=== PATIENT | female | born 1990 | race Caucasian/White ===

== ENCOUNTER → 2016-12-10 | Outpatient (REF) | payer OTHER | LOC: M LAB REF 13:03 | PROVIDERS: ATTEND Advanced Practice Midwife | DX: Z34.82 Encounter for supervision of other normal pregnancy, second trimester (principal) ==

== ENCOUNTER → 2017-01-23 | Outpatient (CLI) | payer BC, OTHER ==
--- NOTE | 2017-01-23 11:54 | REP ---
Clinical: Anatomical evaluation. Comparison: 12/31/2016 . Findings: Examination demonstrates a single live intrauterine in breech presentation. motion is identified by technologist. Placenta is noted anteriorly and grade one without evidence for placenta previa or abruption. Amniotic fluid volume is normal. Cervix measures 4.0 cm in length and appears closed. No evidence for nuchal cord. Gestational age by LMP 22 weeks 3 days with ABENA 05/26/2017 . Gestational age by current measurements 21 weeks 5 days with ABENA 05/31/2017 . FHR equals 162 beats per minute. Estimated weight 413 grams ( 13th percentile). Anatomical assessment demonstrates normal structures including cranium, choroid plexus, cavum, cerebellum/posterior fossa, facial features, lungs, four-chamber heart/ventricular outflow tracts, diaphragm, stomach, cord insertion/three-vessel cord, kidneys/bladder, spine, and extremities. Impression: Single live intrauterine in breech presentation demonstrating appropriate interval growth. Anatomical assessment is complete and normal. No gross abnormalities are identified. Signed by Isaak Acuna MD 01/23/2017 11:46 A
== END ==
LOC: M RAD 10:21
PROVIDERS: ATTEND Advanced Practice Midwife
DX: Z36.2 Encounter for other antenatal screening follow-up (principal)

== ENCOUNTER → 2017-03-02 | Outpatient (CLI) | payer BC, OTHER ==
[2017-03-02 14:18] LABS: HEMATOCRIT 36.9 % (36.0-47.0); HEMOGLOBIN 12.5 g/dl (12.0-16.0); MEAN CORPUSCULAR HEMOGLOBIN 30.6 pg (27.0-33.0); MEAN CORPUSCULAR HGB CONC 33.9 g/dl (32.0-36.5); MEAN CORPUSCULAR VOLUME 90.2 fl (80.0-96.0); PLATELET COUNT, AUTOMATED 215 10^3/uL (150-450); RED BLOOD COUNT 4.09 10^6/uL (4.00-5.40); WHITE BLOOD COUNT 8.7 10^3/uL (4.0-10.0)
[2017-03-02 14:37] LABS: GLUCOSE CHALLENGE TEST 1 HOUR 117 MG/DL (LESS THAN 140)
== END ==
LOC: M SMT 11:05
DX: Z34.82 Encounter for supervision of other normal pregnancy, second trimester (principal)
CPT/HCPCS: 82950

== ENCOUNTER 2017-05-07 03:21 | Inpatient (IN) | payer BC, OTHER ==
[2017-05-07] MEDS: PENICILLIN G POTASSIUM IV 5 MU in D5W MINI-BAG PLUS 100 ML IV (05:38)
[2017-05-07 06:49] LABS: HEMATOCRIT 39.7 % (36.0-47.0); HEMOGLOBIN 13.7 g/dl (12.0-16.0); MEAN CORPUSCULAR HEMOGLOBIN 30.1 pg (27.0-33.0); MEAN CORPUSCULAR HGB CONC 34.5 g/dl (32.0-36.5); MEAN CORPUSCULAR VOLUME 87.3 fl (80.0-96.0); PLATELET COUNT, AUTOMATED 248 10^3/uL (150-450); RED BLOOD COUNT 4.55 10^6/uL (4.00-5.40); RED CELL DISTRIBUTION WIDTH 13.3 % (11.5-14.5); WHITE BLOOD COUNT 13.6 10^3/uL (4.0-10.0)
[2017-05-07] MEDS: PENICILLIN G POTASSIUM IV 2.5 MU in APPROPRIATE DILUENT 1 EA IV ×2 (11:13→14:54)
[2017-05-07] MEDS: LR 1,000 ML IV ×2 (12:35→14:32)
[2017-05-07] MEDS: OXYTOCIN DRIP 30 UNITS in APPROPRIATE DILUENT 1 EA IV (12:36)
[2017-05-07] MEDS ORDERED: FENTANYL 2MCG/ML ROPIVACAINE 0.2% IN 0.9% NACL 200ML IVBAG As Ordered (13:18)
[2017-05-07] MEDS ORDERED: diphenhydrAMINE INJ 50MG/ML VIAL (J1200) IV (17:15)
[2017-05-07] MEDS ORDERED: EPIDURAL/PCA KEYS XX (17:15)
[2017-05-07] MEDS ORDERED: ONDANSETRON 4MG/2ML VIAL (J2405) IV ×2 (17:15→19:00)
[2017-05-07] MEDS ORDERED: NALOXONE INJ 0.4 MG/1 ML VIAL (J2310) IV (17:15)
[2017-05-07] MEDS ORDERED: FENTANYL/ROPIVACAINE/NACL BAG 200 ML EPIDURAL (17:15)
[2017-05-07] MEDS ORDERED: ePHEDrine SULFATE 25 MG/5 ML(5MG/ML) SYRINGE IV (17:15)
[2017-05-07] MEDS ORDERED: LACTATED RINGER'S 1000 ML IV (17:15)
[2017-05-07] MEDS ORDERED: REFRIGERATOR IV KEYS XX (17:15)
[2017-05-07] MEDS ORDERED: EPIDURAL COMMENT XX (17:15)
[2017-05-07] MEDS ORDERED: OXYTOCIN DRIP 30 UNITS in APPROPRIATE DILUENT 1 EA IV (18:57)
[2017-05-07] MEDS ORDERED: LR 1,000 ML IV (18:57)
[2017-05-07] MEDS ORDERED: RHOGAM 300 MCG (1500 IU) INJ (J2790) IM (19:00)
[2017-05-07] MEDS ORDERED: ACETAMINOPHEN 500 MG TAB PO (19:00)
[2017-05-07] MEDS ORDERED: PROMETHAZINE 25 MG TAB PO (19:00)
[2017-05-07] MEDS ORDERED: DIBUCAINE 1% OINTMENT 30GM TOP (19:00)
[2017-05-07] MEDS ORDERED: MEASLES,MUMPS,RUBELLA VACCINE INJ (MMR-II) (90707) SC (19:00)
[2017-05-07] MEDS ORDERED: DOCUSATE SODIUM 100 MG CAP PO (19:00)
[2017-05-08] MEDS ORDERED: HEPATITIS B VAC *BIRTH DOSE ONLY*(ENGERIX) 10 MCG/0.5 ML SYRINGE As Ordered (00:40)
[2017-05-08] MEDS ORDERED: PHYTONADIONE 1 MG/0.5 ML SYRINGE (J3430) As Ordered (00:40)
[2017-05-08] MEDS ORDERED: ERYTHROMYCIN OPHTH OINT As Ordered (00:41)
[2017-05-08] MEDS: PRENATAL VITAMINS CHEWABLE TABLET PO (09:08)
[2017-05-08] MEDS: IBUPROFEN 800 MG TAB PO (09:13)
[2017-05-09] MEDS: PRENATAL VITAMINS CHEWABLE TABLET PO (08:54)
[2017-05-09] MEDS: IBUPROFEN 800 MG TAB PO (08:55)
== END 2017-05-09 14:00 | disposition home or self-care (01) | DRG 560 ==
LOC: M LDO 03:21 → M LDI 04:38 → M OBS 21:30
PROVIDERS: Specialist
PROC: 10E0XZZ Delivery of Products of Conception, External Approach (ICD-10-PCS; principal; 2017-05-07)
DX: O99.824 Streptococcus B carrier state complicating childbirth (principal); Z37.0 Single live birth; Z3A.37 37 weeks gestation of pregnancy

== ENCOUNTER → 2017-10-24 | Outpatient (CLI) | payer BC, OTHER | LOC: M WUC 16:57 | DX: M79.671 Pain in right foot (principal) ==

== ENCOUNTER → 2018-02-19 | Outpatient (CLI) | payer BC, OTHER ==
[~2018-02-19] MED LIST: MOTR200T44 PO; PREN29CH2 PO; TYLE500T78 PO
[2018-02-19 18:09] LABS: BASO % 0.2 % (0.0-1.0); EOS # 0.1 10^3/uL (0.0-0.50); EOS % 1.6 % (0.0-3.0); HEMATOCRIT 40.3 % (36.0-47.0); LYMPH # 2.4 10^3/uL (1.5-6.5); LYMPH % 28.3 % (24.0-44.0); MEAN CORPUSCULAR HGB CONC 34.7 g/dl (32.0-36.5); MEAN CORPUSCULAR VOLUME 89.4 fl (80.0-96.0); MONO # 0.3 10^3/uL (0.0-0.8); MONO % 3.7 % (0.0-5.0); NEUTROPHILS # 5.7 10^3/uL (1.8-7.7); NEUTROPHILS % 65.9 % (36.0-66.0); PLATELET COUNT, AUTOMATED 204 10^3/uL (150-450); RED BLOOD COUNT 4.51 10^6/uL (4.00-5.40); WHITE BLOOD COUNT 8.6 10^3/uL (4.0-10.0)
[2018-02-19 21:08] LABS: CHLAMYDIA DNA AMPLIFICATION NEGATIVE (NEGATIVE); GC DNA AMPLIFICATION NEGATIVE (NEGATIVE)
[2018-02-22 13:54] LABS: HEPATITIS C VIRUS ABY INDEX 0.1 INDEX (<0.8); HIV 1&2 SCREEN CENTAUR NEGATIVE (NEGATIVE); RUBELLA IgG QUALITATIVE IMMUNE (IMMUNE)
== END ==
LOC: M LAB 16:40
PROVIDERS: ATTEND Advanced Practice Midwife
DX: Z34.81 Encounter for supervision of other normal pregnancy, first trimester (principal); Z36.89 Encounter for other specified antenatal screening

== ENCOUNTER → 2018-03-16 | Outpatient (CLI) | payer BC, OTHER ==
--- NOTE | 2018-03-17 07:56 | REP ---
Clinical: Anatomical evaluation. Comparison: 02/09/2018 . Findings: Examination demonstrates a single live intrauterine in breech presentation. motion is identified by technologist. Placenta is noted anterior/left lateral and grade 1 with evidence for vasa previa. No placenta previa or abruption. Amniotic fluid volume is normal. Cervix measures 5.2 cm in length and appears closed. No evidence for nuchal cord. Gestational age by LMP 18 weeks 3 days with ABENA 2018 . Gestational age by current measurements 18 weeks 2 days with ABENA 08/15/2018 . FHR equals 130 beats per minute. BPD 4.0 cm 18 weeks 1 day HC 15.1 cm 18 weeks 1 day AC 12.8 cm 18 weeks 3 days FL 2.6 cm 17 weeks 6 days HL 2.6 cm 18 weeks 2 days HC/AC ratio 1.18 Estimated weight 226 grams ( 33rd percentile). Anatomical assessment demonstrates normal structures including cranium, choroid plexus, cavum, cerebellum/posterior fossa, facial features, lungs, four-chamber heart/ventricular outflow tracts, diaphragm, stomach, cord insertion/three-vessel cord, kidneys/bladder, spine, and extremities. Impression: 1. Single live intrauterine in breech presentation. Appropriate interval growth noted. 2. Vasa previa noted. 3. Limited evaluation of the facial profile. Otherwise normal anatomical assessment. Electronically Signed by Isaak Acuna MD 03/17/2018 07:47 A
== END ==
LOC: M RAD 15:43
PROVIDERS: ATTEND Advanced Practice Midwife
DX: O32.1XX0 Maternal care for breech presentation, not applicable or unspecified (principal); Z36.89 Encounter for other specified antenatal screening; Z3A.18 18 weeks gestation of pregnancy

== ENCOUNTER → 2018-05-20 | Outpatient (CLI) | payer BC, OTHER ==
[2018-05-20 13:46] LABS: HEMATOCRIT 37.8 % (36.0-47.0); HEMOGLOBIN 12.8 g/dl (12.0-15.5); MEAN CORPUSCULAR HEMOGLOBIN 30.2 pg (27.0-33.0); MEAN CORPUSCULAR HGB CONC 33.9 g/dl (32.0-36.5); MEAN CORPUSCULAR VOLUME 89.2 fl (80.0-96.0); PLATELET COUNT, AUTOMATED 203 10^3/uL (150-450); RED BLOOD COUNT 4.24 10^6/uL (4.00-5.40); WHITE BLOOD COUNT 8.5 10^3/uL (4.0-10.0)
== END ==
LOC: M SMT 09:05
PROVIDERS: ATTEND Advanced Practice Midwife
DX: O43.892 Other placental disorders, second trimester (principal); Z3A.00 Weeks of gestation of pregnancy not specified

== ENCOUNTER → 2018-05-27 | Outpatient (CLI) | payer BC, OTHER | LOC: M LAB 08:38 | PROVIDERS: ATTEND Obstetrics & Gynecology | DX: Z34.82 Encounter for supervision of other normal pregnancy, second trimester (principal); Z3A.00 Weeks of gestation of pregnancy not specified ==

== ENCOUNTER → 2018-07-29 | Outpatient (CLI) | payer BC, OTHER ==
[~2018-07-29] MED LIST changes: +ACET-683 PO; +IBUP80TA PO
[2018-07-29 19:33] LABS: HEMATOCRIT 40.2 % (36.0-47.0); HEMOGLOBIN 13.8 g/dl (12.0-15.5); MEAN CORPUSCULAR HEMOGLOBIN 30.3 pg (27.0-33.0); MEAN CORPUSCULAR HGB CONC 34.3 g/dl (32.0-36.5); MEAN CORPUSCULAR VOLUME 88.2 fl (80.0-96.0); PLATELET COUNT, AUTOMATED 210 10^3/uL (150-450); RED BLOOD COUNT 4.56 10^6/uL (4.00-5.40); WHITE BLOOD COUNT 9.3 10^3/uL (4.0-10.0)
[2018-07-29 19:47] LABS: CREATININE,RANDOM URINE 62.8 MG/DL; TOTAL PROTEIN,RANDOM URINE 8.8 MG/DL (0.0-12.0)
[2018-07-29 19:50] LABS: ALT/SGPT 50 U/L (12-78); BILIRUBIN,TOTAL 0.3 MG/DL (0.2-1.0); CREATININE FOR GFR 0.67 MG/DL (0.55-1.30); GLOMERULAR FILTRATION RATE > 60.0 (>60); LDH LACTATE DEHYDROGENASE 166 U/L (84-246); URIC ACID 4.6 MG/DL (2.6-6.0)
== END ==
LOC: M LAB 16:57
PROVIDERS: ATTEND Advanced Practice Midwife
DX: O13.3 Gestational [pregnancy-induced] hypertension without significant proteinuria, third trimester (principal); Z3A.00 Weeks of gestation of pregnancy not specified

== ENCOUNTER 2018-07-31 06:22 | Inpatient (IN) | payer BC, OTHER ==
[2018-07-31] VITALS (18 sets, daily range): BP systolic 116–131; BP diastolic 60–84
[~2018-07-31] VITALS: Ht 172.7 cm; Wt 104.4 kg
[~2018-07-31 06:22] MED LIST changes: -ACET-683 PO; -IBUP80TA PO
[2018-07-31 08:06] LABS: HEMATOCRIT 38.8 % (36.0-47.0); HEMOGLOBIN 13.4 g/dl (12.0-15.5); MEAN CORPUSCULAR HEMOGLOBIN 30.9 pg (27.0-33.0); MEAN CORPUSCULAR HGB CONC 34.5 g/dl (32.0-36.5); MEAN CORPUSCULAR VOLUME 89.6 fl (80.0-96.0); PLATELET COUNT, AUTOMATED 175 10^3/uL (150-450); RED BLOOD COUNT 4.33 10^6/uL (4.00-5.40); WHITE BLOOD COUNT 7.7 10^3/uL (4.0-10.0)
[2018-07-31] MEDS: miSOPROStol 50 MCG 1/2 TAB (S0191) PO SCH ×2 (08:15→12:48)
[2018-07-31 08:31] LABS: TOTAL PROTEIN,RANDOM URINE 39.4 MG/DL (0.0-12.0)
[2018-07-31 08:32] LABS: ALT/SGPT 42 U/L (12-78); BILIRUBIN,TOTAL 0.2 MG/DL (0.2-1.0); CREATININE FOR GFR 0.69 MG/DL (0.55-1.30); GLOMERULAR FILTRATION RATE > 60.0 (>60); LDH LACTATE DEHYDROGENASE 148 U/L (84-246); URIC ACID 4.6 MG/DL (2.6-6.0)
--- NOTE | 2018-07-31 08:35 | HPE ---
DATE OF ADMISSION: 07/31/2018 Juanita is a 27-year-old, 2, para 1-0-0-1 at 39 weeks' gestation, estimated date of confinement (EDC) of 08/14/2018 based on second-trimester ultrasound. She presents to labor and delivery today for induction of labor due to recent diagnosis of gestational hypertension. She denies any regular contractions, vaginal bleeding, and leakage of fluid. The fetus has been active. Her care was initiated at [facility] in the second trimester. Her course complicated by gestational hypertension, question of vasa previa on anatomy scan was seen at [facility] for formal ultrasound with the report of no vasa previa. OBSTETRIC HISTORY: April 2017, 37-2/7 weeks, 6 pound 5 ounce female, spontaneous vaginal delivery. OBSTETRIC LABORATORIES: O+, antibody screen negative, rubella immune, [facility] ([facility]) nonreactive. Urine culture no growth. Hepatitis B surface antigen negative, HIV negative, hepatitis C antibody nonreactive, gonorrhea and chlamydia negative. She declined genetic screening laboratories. Gestational diabetic screening abnormal at 140. 3-hour glucose tolerance test normal. Fasting 80. 1-hour 155. 2-hour 129. 3-hour 93. Group B streptococcus (GBS) is negative. PAST MEDICAL HISTORY: Childhood varicella. SURGERIES: None. FAMILY HISTORY: Noncontributory. SOCIAL HISTORY: The patient is single. However, her partner is at bedside and supportive. She is a nonsmoker. Denies alcohol and drug use. No history of any sexually-transmitted infections and denies history of abuse: physical, sexual, and emotional. ALLERGIES: No known drug allergies. CURRENT MEDICATIONS: - vitamin OBJECTIVE: Temperature 98.2, pulse 86, respirations 18, blood pressure (BP) is 126/60. Currently, the heart rate is 160 with moderate variability and positive accelerations, no decelerations. There is no pattern of contractions. Her abdomen is gravid, cephalic presentation. Estimated weight 7 pounds. Sterile vaginal examination: 1 cm dilated, 75% effaced, -2 station. ASSESSMENT: Intrauterine at 39 weeks. heart rate category one. Gestational hypertension. PLAN: Admit the patient to labor and delivery. Out of bed ad rey. Routine laboratories with the addition of preeclamptic profile and spot urine. A saline lock. Start misoprostol 50 mcg by mouth every 4 hours for cervical ripening. The patient does desire an epidural when she is in active labor. I did review risks, benefits, and alternatives. The patient and her partner have had all their questions answered and desire to proceed with induction. She has been verbally consented for emergency surgery and blood products if necessary. I do anticipate cervical ripening, labor, and a spontaneous vaginal delivery. MTDD
[2018-07-31] MEDS ORDERED: OXYTOCIN DRIP 30 UNITS in APPROPRIATE DILUENT 1 EA IV SCH (16:45)
[2018-07-31] MEDS: LR 1,000 ML IV SCH ×2 (17:40→22:25)
[2018-08-01] VITALS (48 sets, daily range): BP systolic 96–133; BP diastolic 50–80
[2018-08-01] MEDS ORDERED: ACETAMINOPHEN 500 MG TAB PO PRN ×2 (00:15→14:45)
--- NOTE | 2018-08-01 00:38 | NUR ---
L&D Note: S: comfortable O: vss, AF cat 1 tracing gen: well appearing cx: 1/75/-2, cooks cath placed 60/30 A/P: 27yo IOL GHTN -cont pitocin - good candidate for epidural -anticipate Sofia Agee MD
[2018-08-01] MEDS: LR 1,000 ML IV SCH ×2 (06:04→08:56)
--- NOTE | 2018-08-01 07:44 | NUR ---
L&D Note: S: comfortable O: vss, AF cat 1 tracing gen: well appearing cx: 4/75/-2, cooks out. AROM clear A/P: 27yo IOL GHTN -cont pitocin - good candidate for epidural -re check in within 4 hrs -anticipate Sofia Agee MD
[2018-08-01] MEDS ORDERED: FENTANYL 2MCG/ML ROPIVACAINE 0.2% IN 0.9% NACL 100ML IVBAG As Ordered ONE (08:35)
[2018-08-01 08:49] LABS: HEMATOCRIT 38.9 % (36.0-47.0); HEMOGLOBIN 13.4 g/dl (12.0-15.5); MEAN CORPUSCULAR HEMOGLOBIN 30.9 pg (27.0-33.0); MEAN CORPUSCULAR HGB CONC 34.4 g/dl (32.0-36.5); MEAN CORPUSCULAR VOLUME 89.6 fl (80.0-96.0); PLATELET COUNT, AUTOMATED 175 10^3/uL (150-450); RED BLOOD COUNT 4.34 10^6/uL (4.00-5.40); WHITE BLOOD COUNT 9.6 10^3/uL (4.0-10.0)
[2018-08-01] MEDS ORDERED: REFRIGERATOR IV KEYS XX PRN (10:00)
[2018-08-01] MEDS ORDERED: FENTANYL/ROPIVACAINE/NACL BAG 100 ML EPIDURAL SCH (10:00)
[2018-08-01] MEDS ORDERED: diphenhydrAMINE INJ 50MG/ML VIAL (J1200) IV PRN (10:00)
[2018-08-01] MEDS ORDERED: NALOXONE INJ 0.4 MG/1 ML VIAL (J2310) IV PRN (10:00)
[2018-08-01] MEDS ORDERED: EPIDURAL/PCA KEYS XX PRN (10:00)
[2018-08-01] MEDS ORDERED: ONDANSETRON 4MG/2ML VIAL (J2405) IV PRN (10:00)
[2018-08-01] MEDS ORDERED: EPIDURAL COMMENT XX SCH (10:00)
[2018-08-01] MEDS ORDERED: LACTATED RINGER'S 1000 ML IV PRN (10:00)
[2018-08-01] MEDS: ePHEDrine SULFATE 25 MG/5 ML(5MG/ML) SYRINGE IV PRN ×3 (10:13→12:51)
[2018-08-01] MEDS ORDERED: OXYTOCIN DRIP 30 UNITS in APPROPRIATE DILUENT 1 EA IV SCH (14:38)
[2018-08-01] MEDS ORDERED: IBUPROFEN 800 MG TAB PO PRN (14:45)
[2018-08-01] MEDS ORDERED: MEASLES,MUMPS,RUBELLA VACCINE INJ (MMR-II) (90707) SC SCH (14:45)
[2018-08-01] MEDS ORDERED: IBUPROFEN 600 MG TAB PO PRN (14:45)
[2018-08-01] MEDS ORDERED: DOCUSATE SODIUM 100 MG CAP PO PRN (14:45)
[2018-08-01] MEDS ORDERED: RHOGAM 300 MCG (1500 IU) INJ (J2790) IM SCH (14:45)
[2018-08-01] MEDS ORDERED: ACETAMINOPHEN TAB 650MG DOSE (2X325MG) PO PRN (14:45)
[2018-08-01] MEDS ORDERED: MOM 30ML SUSPENSION UDC PO PRN (14:45)
[2018-08-01] MEDS ORDERED: DIBUCAINE 1% OINTMENT 30GM TOP PRN (14:45)
[2018-08-01] MEDS ORDERED: METHYLERGONOVINE MALEATE 0.2 MG TAB PO PRN (14:45)
[2018-08-01] MEDS ORDERED: ANUSOL HC CREAM 30GM TOP PRN (14:45)
[2018-08-01] MEDS ORDERED: OXYTOCIN 30 UNITS IN 0.9% NaCl 500ML IV BAG (J2590) As Ordered ONE (14:50)
[2018-08-01] MEDS: PRENATAL VITAMINS CHEWABLE TABLET PO SCH (14:59)
[2018-08-02 05:51] VITALS: BP 119/60
--- NOTE | 2018-08-02 06:28 | NUR ---
PPD# 1 S: Doing well w/o complaints. +voids, +ambulation and pain well controlled O: vss, AF gen: well appearing abd: soft, nttp ff@U ext: neg calf tenderness A/P: PPD # 1 s/p NSD, recovering in stable condition -continue routine care -d/c plans for tomorrow or later today Sofia Agee MD
--- NOTE | 2018-08-02 07:32 | DN ---
DATE OF DELIVERY: 08/01/2018 TIME OF : 1413 GENDER: Female. APGARS: 8 and 9. WEIGHT: 6 pounds 9 ounces or 2970 grams. ANESTHESIA: Epidural. LACERATIONS: None. ESTIMATED BLOOD LOSS: 300 mL. COUNTS: 5 laparotomy sponges accounted for prior to delivery. DELIVERY NOTE: On 08/01/2018, at 1413, Ms. Yanez, a 27-year-old, 2, now para 2, had spontaneous vaginal delivery of a live born female infant, Apgars 8 and 9, weight was 6 pounds 9 ounces or 2970 grams. Head was delivered occiput anterior (OA) over an intact perineum followed by delivery of shoulders and corpus. The infant was handed to mom with a good cry. Cord was clamped times two and was cut by the father of the baby under my direction. Placenta was then drained and delivered grossly intact. A premixed bag of 500 mL of normal saline with 30 units of Pitocin was then bolused along with uterine massage until the uterus was firm. On inspection, cervix, vagina and perineum was grossly intact and hemostatic. Mom and baby recovering in stable condition. The couple has decided to name their daughter, Tri.
[2018-08-02] MEDS: PRENATAL VITAMINS CHEWABLE TABLET PO SCH (08:25)
[2018-08-02] MEDS ORDERED: IBUP80TA PO (16:05)
[2018-08-02] MEDS ORDERED: ACET-683 PO (16:05)
== END 2018-08-02 18:42 | disposition home or self-care (01) | DRG 560 ==
LOC: M LDI 06:22 → M OBS 08-01 17:28
PROVIDERS: ADMIT Advanced Practice Midwife; ATTEND Advanced Practice Midwife
PROC: 3E0DXGC Introduction of Other Therapeutic Substance into Mouth and Pharynx, External Approach (ICD-10-PCS; 2018-07-31)
PROC: 10E0XZZ Delivery of Products of Conception, External Approach (ICD-10-PCS; principal; 2018-08-01)
DX: O13.4 Gestational [pregnancy-induced] hypertension without significant proteinuria, complicating childbirth (principal); Z37.0 Single live birth; Z3A.39 39 weeks gestation of pregnancy

== ENCOUNTER → 2018-12-21 | Outpatient (REF) | payer OTHER ==
[~2018-12-21] MED LIST changes: +ACET-683 PO; +IBUP80TA PO
== END ==
LOC: M LAB REF 18:44
PROVIDERS: ATTEND Obstetrics & Gynecology
DX: Z12.4 Encounter for screening for malignant neoplasm of cervix (principal); R87.619 Unspecified abnormal cytological findings in specimens from cervix uteri

== ENCOUNTER → 2020-04-19 | Outpatient (REF) | payer OTHER | LOC: M SFHCWAGY 08:42 | PROVIDERS: ATTEND Advanced Practice Midwife | DX: Z12.4 Encounter for screening for malignant neoplasm of cervix (principal); Z77.9 Other contact with and (suspected) exposures hazardous to health | CPT/HCPCS: 87624; G0123 ==

== ENCOUNTER → 2022-05-06 | Outpatient (CLI) | payer OTHER, BC ==
[2022-05-06 13:52] LABS: HEMATOCRIT 40.2 % (36.0-47.0); HEMOGLOBIN 13.5 g/dl (12.0-15.5); MEAN CORPUSCULAR HEMOGLOBIN 30.2 pg (27.0-33.0); MEAN CORPUSCULAR HGB CONC 33.6 g/dl (32.0-36.5); MEAN CORPUSCULAR VOLUME 89.9 fl (80.0-96.0); PLATELET COUNT, AUTOMATED 215 10^3/uL (150-450); RED BLOOD COUNT 4.47 10^6/uL (4.00-5.40); WHITE BLOOD COUNT 7.6 10^3/uL (4.0-10.0)
[2022-05-06 14:46] LABS: HIV 1&2 SCREEN CENTAUR NEGATIVE (NEGATIVE)
[2022-05-07 16:10] LABS: GC DNA AMPLIFICATION NEGATIVE (NEGATIVE)
== END ==
LOC: M PLALAB 09:59
PROVIDERS: ATTEND Obstetrics & Gynecology
DX: Z34.81 Encounter for supervision of other normal pregnancy, first trimester (principal); Z3A.00 Weeks of gestation of pregnancy not specified

== ENCOUNTER → 2022-07-11 | Outpatient (CLI) | payer BC, OTHER | LOC: M WHC 09:51 | PROVIDERS: ATTEND Advanced Practice Midwife | DX: Z36.3 Encounter for antenatal screening for malformations (principal); Z3A.19 19 weeks gestation of pregnancy ==

== ENCOUNTER → 2022-09-02 | Outpatient (CLI) | payer BC, OTHER ==
[2022-09-02 18:06] LABS: HEMATOCRIT 37.3 % (36.0-47.0); HEMOGLOBIN 12.3 g/dl (12.0-15.5); MEAN CORPUSCULAR HEMOGLOBIN 30.1 pg (27.0-33.0); MEAN CORPUSCULAR VOLUME 91.4 fl (80.0-96.0); PLATELET COUNT, AUTOMATED 211 10^3/uL (150-450); RED BLOOD COUNT 4.08 10^6/uL (4.00-5.40); WHITE BLOOD COUNT 8.7 10^3/uL (4.0-10.0)
== END ==
LOC: M PLALAB 12:08
PROVIDERS: ATTEND Advanced Practice Midwife
DX: Z34.82 Encounter for supervision of other normal pregnancy, second trimester (principal)

== ENCOUNTER → 2022-10-30 | Outpatient (REF) | payer OTHER | LOC: M PLALAB 13:53 | PROVIDERS: ATTEND Advanced Practice Midwife | DX: Z34.80 Encounter for supervision of other normal pregnancy, unspecified trimester (principal) ==

== ENCOUNTER → 2022-11-07 | Outpatient (CLI) | payer BC, OTHER ==
[2022-11-07 15:00] LABS: HEMATOCRIT 38.8 % (36.0-47.0); HEMOGLOBIN 12.7 g/dl (12.0-15.5); MEAN CORPUSCULAR HEMOGLOBIN 29.3 pg (27.0-33.0); MEAN CORPUSCULAR HGB CONC 32.7 g/dl (32.0-36.5); MEAN CORPUSCULAR VOLUME 89.6 fl (80.0-96.0); PLATELET COUNT, AUTOMATED 197 10^3/uL (150-450); RED BLOOD COUNT 4.33 10^6/uL (4.00-5.40); WHITE BLOOD COUNT 8.1 10^3/uL (4.0-10.0)
[2022-11-07 15:25] LABS: TOTAL PROTEIN,RANDOM URINE 21.1 MG/DL (0.0-14.0)
[2022-11-07 15:29] LABS: CREATININE,RANDOM URINE 104.6 MG/DL
[2022-11-07 15:30] LABS: LDH LACTATE DEHYDROGENASE 155 U/L (120-246)
[2022-11-07 15:31] LABS: ALT/SGPT 26 U/L (7.0-40); AST/SGOT 13 U/L (<34); BILIRUBIN,TOTAL 0.4 MG/DL (0.3-1.2); CREATININE FOR GFR 0.57 MG/DL (0.55-1.30); GLOMERULAR FILTRATION RATE > 60.0 (>60)
== END ==
LOC: M PLALAB 09:55
PROVIDERS: ATTEND Advanced Practice Midwife
DX: O13.9 Gestational [pregnancy-induced] hypertension without significant proteinuria, unspecified trimester (principal)

== ENCOUNTER → 2024-03-09 | Outpatient (CLI) | payer BC, OTHER ==
[2024-03-09 13:56] LABS: HEMATOCRIT 41.3 % (36.0-47.0); MEAN CORPUSCULAR HEMOGLOBIN 30.8 pg (27.0-33.0); MEAN CORPUSCULAR HGB CONC 33.9 g/dl (32.0-36.5); PLATELET COUNT, AUTOMATED 212 10^3/uL (150-450); RED BLOOD COUNT 4.54 10^6/uL (4.00-5.40)
[2024-03-09 14:57] LABS: HIV 1&2 SCREEN NEGATIVE (NEGATIVE)
[2024-03-09 14:59] LABS: GC DNA AMPLIFICATION NEGATIVE (NEGATIVE)
[2024-03-09 15:06] LABS: HEPATITIS C VIRUS ABY INDEX < 0.02 INDEX (<0.8)
== END ==
LOC: M PLALAB 11:06
PROVIDERS: ATTEND Specialist
DX: Z34.81 Encounter for supervision of other normal pregnancy, first trimester (principal)

== ENCOUNTER → 2024-05-06 | Outpatient (CLI) | payer BC ==
[2024-05-06 14:11] LABS: LDH LACTATE DEHYDROGENASE 161 U/L (120-246)
[2024-05-06 14:12] LABS: ALT/SGPT 19 U/L (7.0-40); AST/SGOT 14 U/L (<34); BILIRUBIN,TOTAL 0.4 MG/DL (0.3-1.2); CREATININE FOR GFR 0.59 MG/DL (0.55-1.30); GLOMERULAR FILTRATION RATE > 60.0 (>60); HEMATOCRIT 40.6 % (36.0-47.0); HEMOGLOBIN 13.7 g/dl (12.0-15.5); MEAN CORPUSCULAR HEMOGLOBIN 30.4 pg (27.0-33.0); MEAN CORPUSCULAR HGB CONC 33.7 g/dl (32.0-36.5); PLATELET COUNT, AUTOMATED 212 10^3/uL (150-450); RED BLOOD COUNT 4.51 10^6/uL (4.00-5.40); WHITE BLOOD COUNT 7.9 10^3/uL (4.0-10.0)
[2024-05-06 14:13] LABS: URIC ACID 4.9 MG/DL (3.1-7.8)
[2024-05-06 14:33] LABS: CREATININE,RANDOM URINE 51.4 MG/DL
[2024-05-06 14:36] LABS: TOTAL PROTEIN,RANDOM URINE < 6.0 MG/DL (0.0-14.0)
== END ==
LOC: M PLALAB 10:32
PROVIDERS: ATTEND Obstetrics & Gynecology
DX: Z34.82 Encounter for supervision of other normal pregnancy, second trimester (principal)

== ENCOUNTER → 2024-05-06 | Outpatient (REF) | payer BC | LOC: M PLALAB 10:19 | PROVIDERS: ATTEND Obstetrics & Gynecology | DX: Z53.20 Procedure and treatment not carried out because of patient's decision for unspecified reasons (principal) ==

== ENCOUNTER → 2024-05-13 | Outpatient (CLI) | payer BC | LOC: M WHC 09:08 | PROVIDERS: ATTEND Specialist | DX: Z34.82 Encounter for supervision of other normal pregnancy, second trimester (principal) ==

== ENCOUNTER → 2024-06-09 | Outpatient (REF) | payer BC | LOC: M PLALAB 17:32 | PROVIDERS: ATTEND Advanced Practice Midwife | DX: B34.3 Parvovirus infection, unspecified (principal) ==

== ENCOUNTER → 2024-07-01 | Outpatient (CLI) | payer BC ==
[2024-07-01 16:05] LABS: HEMATOCRIT 39.5 % (36.0-47.0); HEMOGLOBIN 13.1 g/dl (12.0-15.5); MEAN CORPUSCULAR HEMOGLOBIN 30.4 pg (27.0-33.0); MEAN CORPUSCULAR HGB CONC 33.2 g/dl (32.0-36.5); MEAN CORPUSCULAR VOLUME 91.6 fl (80.0-96.0); PLATELET COUNT, AUTOMATED 218 10^3/uL (150-450); RED BLOOD COUNT 4.31 10^6/uL (4.00-5.40); WHITE BLOOD COUNT 8.2 10^3/uL (4.0-10.0)
[2024-07-01 16:28] LABS: GLUCOSE CHALLENGE TEST 1 HOUR 119 MG/DL (LESS THAN 140)
[2024-07-01 17:01] LABS: HIV 1&2 SCREEN NEGATIVE (NEGATIVE)
[2024-07-01 17:08] LABS: HEPATITIS C VIRUS ABY INDEX 0.04 INDEX (<0.8)
[2024-07-01 17:16] LABS: Trichomonas vaginalis (AMP) NOT DETECTED (NEGATIVE)
[2024-07-04 14:30] LABS: GC DNA AMPLIFICATION NEGATIVE (NEGATIVE)
== END ==
LOC: M PLALAB 12:57
PROVIDERS: ATTEND Obstetrics & Gynecology
DX: Z34.83 Encounter for supervision of other normal pregnancy, third trimester (principal)

== ENCOUNTER → 2024-07-01 | Outpatient (CLI) | payer BC | LOC: M WHC 09:38 | PROVIDERS: ATTEND Advanced Practice Midwife | DX: Z34.82 Encounter for supervision of other normal pregnancy, second trimester (principal); Z3A.26 26 weeks gestation of pregnancy ==

== ENCOUNTER → 2024-09-06 | Outpatient (REF) | payer BC | LOC: M SFHCWAGY 12:50 | PROVIDERS: ATTEND Advanced Practice Midwife | DX: Z34.83 Encounter for supervision of other normal pregnancy, third trimester (principal) ==

== ENCOUNTER 2024-09-14 07:40 | Inpatient (IN) | payer BC ==
[2024-09-14] VITALS (28 sets, daily range): BP systolic 98–155; BP diastolic 54–84
[~2024-09-14] VITALS: Ht 172.7 cm; Wt 112.9 kg
[2024-09-14] MEDS ORDERED: ASPI81CH33 PO (08:03)
[2024-09-14] MEDS ORDERED: LABE200T5 PO (08:03)
[2024-09-14] MEDS ORDERED: HOME MED LIST COMPLETE! XX SCH (08:05)
[2024-09-14] MEDS ORDERED: OXYTOCIN INJ 10UNITS/ML 1ML VIAL IM PRN (09:05)
[2024-09-14] MEDS ORDERED: CARBOPROST TROMETHAMINE 250 MCG/ML AMP IM PRN (09:05)
[2024-09-14] MEDS ORDERED: OXYTOCIN DRIP 30 UNITS in IV 1 EA IV PRN (09:05)
[2024-09-14] MEDS: miSOPROStol 50 MCG 1/2 TABLET PO SCH (09:14)
[2024-09-14 09:26] LABS: PLATELET COUNT, AUTOMATED 168 10^3/uL (150-450)
[2024-09-14 09:52] LABS: LDH LACTATE DEHYDROGENASE 183 U/L (120-246)
[2024-09-14 09:53] LABS: ALT/SGPT 34 U/L (7.0-40); AST/SGOT 27 U/L (<34); CREATININE FOR GFR 0.51 MG/DL (0.55-1.30); GLOMERULAR FILTRATION RATE > 90.0 (>60)
[2024-09-14 10:27] LABS: HIV 1&2 SCREEN NEGATIVE (NEGATIVE)
[2024-09-14 10:35] LABS: HEPATITIS C VIRUS ABY INDEX < 0.02 INDEX (<0.8)
[2024-09-14] MEDS: LR 1,000 ML IV SCH (18:08)
[2024-09-14] MEDS: OXYTOCIN DRIP 30 UNITS in IV 1 EA IV SCH (18:08)
[2024-09-14] MEDS ORDERED: NALOXONE INJ 0.4 MG/1 ML VIAL IV PRN (21:45)
[2024-09-14] MEDS ORDERED: diphenhydrAMINE 50 MG/ML VIAL IV PRN (21:45)
[2024-09-14] MEDS ORDERED: EPIDURAL/PCA KEYS XX PRN (21:45)
[2024-09-14] MEDS ORDERED: LR 500 ML IV PRN (21:45)
[2024-09-14] MEDS ORDERED: ONDANSETRON 4MG 2ML VIAL IV PRN (21:45)
[2024-09-14] MEDS: FENTANYL/ROPIVACAINE/NACL BAG 100 ML EPIDURAL SCH (21:50)
[2024-09-15] VITALS (28 sets, daily range): BP systolic 105–143; BP diastolic 51–76; O2SAT 97–98
[2024-09-15] MEDS: OXYTOCIN DRIP 30 UNITS in IV 1 EA IV PRN (06:10)
[2024-09-15] MEDS: TRANEXAMIC ACID INJection 1,000 MG in NS 100 ML IV PRN (06:10)
[2024-09-15] MEDS ORDERED: ACETAMINOPHEN 325 MG TAB PO PRN (06:35)
[2024-09-15] MEDS ORDERED: DOCUSATE SODIUM 100 MG CAPSULE PO PRN (06:35)
[2024-09-15] MEDS ORDERED: IBUPROFEN 800 MG TAB PO PRN (06:35)
[2024-09-15] MEDS ORDERED: DIBUCAINE 1% OINTMENT 30 GM TOP PRN (06:35)
[2024-09-15] MEDS: LABETALOL 200 MG TAB PO SCH (09:48)
[2024-09-15] MEDS: PRENATAL VITAMINS CHEWABLE TABLET PO SCH (09:48)
[2024-09-15] MEDS: ACETAMINOPHEN 500 MG TAB PO PRN (17:12)
[2024-09-16 06:20] VITALS: BP 124/67; O2SAT 98
[2024-09-16] MEDS: RHOGAM 300MCG (1500IU) INJ IM SCH (07:20)
[2024-09-16] MEDS: IBUPROFEN 600 MG TAB PO PRN (08:13)
[2024-09-16] MEDS: MEASLES,MUMPS,RUBELLA VACCINE INJ (MMR-II) SC.IMMUN ONE (09:21)
== END 2024-09-16 12:03 | disposition home or self-care (01) | DRG 560 ==
LOC: M LDI 07:40 → M OBS 09-15 08:40
PROVIDERS: ADMIT Advanced Practice Midwife; ATTEND Advanced Practice Midwife
PROC: 3E0P7GC Introduction of Other Therapeutic Substance into Female Reproductive, Via Natural or Artificial Opening (ICD-10-PCS; 2024-09-14)
PROC: 10907ZC Drainage of Amniotic Fluid, Therapeutic from Products of Conception, Via Natural or Artificial Opening (ICD-10-PCS; 2024-09-14)
PROC: 10E0XZZ Delivery of Products of Conception, External Approach (ICD-10-PCS; principal; 2024-09-15)
DX: O10.02 Pre-existing essential hypertension complicating childbirth (principal); O69.81X0 Labor and delivery complicated by cord around neck, without compression, not applicable or unspecified; Z3A.37 37 weeks gestation of pregnancy; Z79.82 Long term (current) use of aspirin; Z79.899 Other long term (current) drug therapy; Z37.0 Single live birth